=== PATIENT | female | born 1955 | race Two or more races ===

== ENCOUNTER 2021-04-17 16:10 | Emergency (ER) | payer MEDICAID ==
[~2021-04-17] VITALS: Ht 165.1 cm; Wt 81.6 kg
[2021-04-17 16:54] LABS: Basophils # (auto) 0 10 ^3/uL (0-0.2); Basophils % (auto) 0.4 % (0.0-2.0); Eosinophils # (auto) 0.1 10 ^3/uL (0-0.8); Eosinophils % (auto) 1.3 % (0.0-7.0); Hematocrit 42.7 % (36.0-46.0); Hemoglobin 14.7 g/dL (12.2-16.2); Lymphocytes # (auto) 1.3 10 ^3/uL (0.4-5.4); Lymphocytes % (auto) 13.7 % (10.0-50.0); Mean Corpuscular Hemoglobin 31.5 pg (28.0-32.0); Mean Corpuscular Hgb Conc. 34.4 g/dL (32.0-36.0); Mean Corpuscular Volume 91.5 fL (80.0-100.0); Monocytes # (auto) 0.5 10 ^3/uL (0-1.3); Monocytes % (auto) 5.3 % (0.0-12.0); Neutrophils # (auto) 7.5 10 ^3/uL (1.6-8.6); Neutrophils % (auto) 79.3 % (37.0-80.0); Red Blood Cells 4.67 10^6/uL (4.0-5.20); White Blood Cell 9.5 10^3/uL (4.4-10.8)
[2021-04-17 17:14] LABS: Albumin 4.3 g/dL (3.4-5.0); Calcium 8.8 mg/dL (8.5-10.1); Magnesium 2.1 mg/dL (1.6-2.6); Potassium 3.6 mmol/L (3.5-5.1)
[2021-04-17 17:19] LABS: Bilirubin, Total 0.5 mg/dL (0.2-1.0); Total Protein 7.8 g/dL (6.4-8.2)
[2021-04-17 17:38] LABS: Urine Bacteria FEW /hpf (None Seen); Urine Blood 1+ /uL (Negative); Urine Mucus FEW (None Seen); Urine WBC 11 /hpf (0 - 5)
[2021-04-18 03:55] VITALS: BP 154/81
== END 2021-04-18 05:00 | disposition home or self-care (01) ==
LOC: ER 16:10
DX: K80.20 Calculus of gallbladder without cholecystitis without obstruction (principal); J45.909 Unspecified asthma, uncomplicated; K21.9 Gastro-esophageal reflux disease without esophagitis; E11.9 Type 2 diabetes mellitus without complications
CPT/HCPCS: 36415; 74176; 80053; 81001; 82150; 83690; 83735; 85025; 93005

== ENCOUNTER 2024-08-20 18:38 | Inpatient (IN) | payer OTHER, MEDICAID ==
[~2024-08-20] VITALS: Ht 162.6 cm; Wt 68.8 kg
[2024-08-20 20:13] VITALS: BP 124/62; PULSE 91; PULSE 92; RESP 18; TEMP 100.9; O2SAT 92; O2SAT 93
[2024-08-20 20:20] VITALS: PULSE 75; RESP 18; O2SAT 95
[2024-08-20] MEDS ORDERED: MORPHINE SULFATE INJ 2 MG/ml SYRG IV PRN (22:30)
[2024-08-20] MEDS ORDERED: NITROGLYCERIN 0.4 MG SL TAB SL PRN (22:30)
--- NOTE | 2024-08-20 22:52 | DVHHP2 ---
Patient Family History: Patient reports no known family medical history. Allergies: Coded Allergies: Acetaminophen (Verified Allergy, Unknown, 10/29/15) Home Meds No Active Prescriptions or Reported Meds Current Medications Current Medications Medications (Trade) Dose Ordered Sig/Quynh Route PRN Reason Start Time Stop Time Status Last Admin Nitroglycerin (Ntrostat Sublingual) 0.4 mg Q5MINP PRN SL FOR CHEST PAIN 08/20/24 22:30 Morphine Sulfate 2 mg Q30M PRN IV FOR CHEST PAIN 08/20/24 22:30 Ceftriaxone Sodium 50 ml @ 100 mls/hr Q12HR IV 08/21/24 08:00 UNV Acetaminophen (Tylenol Tablet) 650 mg Q6HP PRN PO MILD PAIN (1-3 PAIN SCALE) 08/20/24 22:30 UNV Ketorolac Tromethamine (Toradol Injection) 15 mg Q6HPRN PRN IV Nod PAIN (4-6 PAIN SCALE) 08/20/24 22:30 08/25/24 22:29 UNV Pantoprazole Sodium (Protonix) 40 mg BID IV 08/21/24 10:00 UNV Ascorbic Acid (Vitamin C Tablet) 500 mg BID PO 08/21/24 10:00 UNV Valsartan (Diovan) 160 mg DAILY PO 08/21/24 10:00 UNV Insulin Human Lispro (HumaLOG) AC SC 08/21/24 07:00 UNV Insulin Human Lispro (HumaLOG) HS SC 08/21/24 22:00 UNV Sodium Chloride 1,000 ml @ 75 mls/hr [id number] IV 08/20/24 22:30 UNV Carbamazepine (TEGretol TABLET) 200 mg QID PO 08/21/24 06:00 UNV Vital Signs Vital Signs Date Time Temp Pulse Resp B/P (MAP) Pulse Ox O2 Delivery O2 Flow Rate FiO2 08/20/24 20:13 100.9 91 18 124/62 (82) 93 100.9 Results Labs Test 08/20/24 21:56 Range/Units Primary Diagnosis Acute asthmatic bronchitis Moderately severe hypovolemia Admitting Diagnosis: Acute asthmatic bronchitis Moderately severe hypovolemia Uncontrolled NIDDM Fairly well-controlled hypertension Recurrent UTI 2' Diagnosis/Comorbidities For LORRIE MAKI MD August 20, 2024 22:52
[2024-08-20 22:54] LABS: Basophils # (auto) 0 10 ^3/uL (0-0.2); Basophils % (auto) 0.3 % (0.0-2.0); Eosinophils # (auto) 0 10 ^3/uL (0-0.8); Lymphocytes # (auto) 1.5 10 ^3/uL (0.4-5.4); Lymphocytes % (auto) 13.7 % (10.0-50.0); Mean Corpuscular Hemoglobin 31.6 pg (28.0-32.0); Mean Corpuscular Hgb Conc. 35.1 g/dL (32.0-36.0); Mean Corpuscular Volume 90.2 fL (80.0-100.0); Monocytes # (auto) 1.3 10 ^3/uL (0-1.3); Monocytes % (auto) 11.3 % (0.0-12.0); Neutrophils # (auto) 8.5 10 ^3/uL (1.6-8.6); Neutrophils % (auto) 74.7 % (37.0-80.0); Platelet Count (auto) 192 10^3/uL (140-450); Red Cell Distribution Width 12.9 % (11.8-14.3); White Blood Cell 11.3 10^3/uL (4.4-10.8)
[2024-08-20 23:07] LABS: Alanine Aminotransferase 33 U/L (7-40); Alkaline Phosphatase 51 U/L (46-116); Anion Gap 11 (5-15); Aspartate Aminotransferase 22 U/L (13-40); BUN/Creatinine Ratio 13.3 (10.0-20.0); Blood Urea Nitrogen 10 mg/dL (9-23); Calcium 9.4 mg/dL (8.7-10.4); Carbon Dioxide 22 mmol/L (20-31); Chloride 102 mmol/L (98-107); Total Protein 7.2 g/dL (5.7-8.2); Triglycerides 113 mg/dL (< 150)
[2024-08-20 23:08] LABS: Albumin 4.5 g/dL (3.2-4.8); Bilirubin, Total 0.7 mg/dL (0.2-1.0); Cholesterol 163 mg/dL (< 200); Glucose 144 mg/dL (74-106); HDL Cholesterol 30 mg/dL (40-59); LDL Cholesterol 114 mg/dL (< 100); Phosphorus 3.2 mg/dL (2.4-5.1); Sodium 135 mmol/L (136-145)
[2024-08-20] MEDS: KETOROLAC TROMETH 30 MG/ML 1ML VIAL IV ONE (23:43)
[2024-08-20] MEDS: SODIUM CHLORIDE 0.9% 1,000 ML IV SCH (23:43)
[2024-08-20] MEDS: cefTRIAXone 2GM/50ML D5W 50 ML IV ONE (23:43)
[2024-08-20 23:52] LABS: Folate (Folic Acid) 21.74 ng/mL (>5.38)
[2024-08-21] VITALS (8 sets, daily range): BP systolic 98–146; BP diastolic 58–66; PULSE 73–99; RESP 17–20; TEMP 97.8–102.7; O2SAT 91–100
[2024-08-21] MEDS: carBAMazepine 200 MG TAB PO SCH (06:04)
[2024-08-21] MEDS: INSULIN LISPRO (HUMAN) 100 UNITS/ML ML SC SCH ×2 (06:08→22:00)
[2024-08-21 06:18] LABS: Basophils # (auto) 0 10 ^3/uL (0-0.2); Basophils % (auto) 0.3 % (0.0-2.0); Eosinophils # (auto) 0 10 ^3/uL (0-0.8); Hematocrit 37.3 % (36.0-46.0); Lymphocytes # (auto) 2.1 10 ^3/uL (0.4-5.4); Lymphocytes % (auto) 18.3 % (10.0-50.0); Mean Corpuscular Hemoglobin 31.8 pg (28.0-32.0); Monocytes # (auto) 1.5 10 ^3/uL (0-1.3); Monocytes % (auto) 13.1 % (0.0-12.0); Neutrophils # (auto) 7.9 10 ^3/uL (1.6-8.6); Neutrophils % (auto) 68.3 % (37.0-80.0); Platelet Count (auto) 190 10^3/uL (140-450); Red Cell Distribution Width 13.2 % (11.8-14.3); White Blood Cell 11.6 10^3/uL (4.4-10.8)
[2024-08-21 06:30] LABS: Alanine Aminotransferase 32 U/L (7-40); Albumin 4.5 g/dL (3.2-4.8); Alkaline Phosphatase 49 U/L (46-116); Anion Gap 9 (5-15); Aspartate Aminotransferase 21 U/L (13-40); BUN/Creatinine Ratio 12.1 (10.0-20.0); Bilirubin, Total 0.5 mg/dL (0.2-1.0); Blood Urea Nitrogen 11 mg/dL (9-23); Calcium 8.9 mg/dL (8.7-10.4); Carbon Dioxide 25 mmol/L (20-31); Chloride 102 mmol/L (98-107); Magnesium 2.2 mg/dL (1.6-2.6); Sodium 136 mmol/L (136-145); Total Protein 7.2 g/dL (5.7-8.2)
[2024-08-21 06:35] LABS: Glucose 122 mg/dL (74-106); Potassium 3.1 mmol/L (3.5-5.1)
--- NOTE | 2024-08-21 06:55 | DVH ---
EXAM: XR Chest, 1 View CLINICAL INDICATION: pnm TECHNIQUE: Frontal view of the chest. COMPARISON: None FINDINGS: LUNGS AND PLEURAL SPACES: Unremarkable. No consolidation. No pneumothorax. HEART: Cardiomegaly without overt failure. MEDIASTINUM: Unremarkable. Normal mediastinal contour. BONES/JOINTS: Unremarkable. No acute fracture. OTHER FINDINGS: . IMPRESSION: Cardiomegaly without overt failure.
[2024-08-21] MEDS ORDERED: INSULIN LISPRO (HUMAN) 100 UNITS/ML ML SC SCH ×2 (07:00→22:00)
[2024-08-21] MEDS: PANTOPRAZOLE 40 MG/10 ML VIAL INJ IV SCH (08:03)
[2024-08-21] MEDS: cefTRIAXone 1GM/50ML D5W 50 ML IV SCH (08:03)
[2024-08-21] MEDS: VALSARTAN 80 MG TAB PO SCH (08:04)
[2024-08-21] MEDS: ASCORBIC ACID 500 MG TAB PO SCH (08:04)
[2024-08-21] MEDS: KETOROLAC TROMETH 30 MG/ML 1ML VIAL IV PRN (08:10)
[2024-08-21 11:16] LABS: Hepatitis B Surface Antigen Negative (Negative); Hepatitis C Antibody Negative (Negative)
[2024-08-21] MEDS: SODIUM CHLORIDE 0.9% 1,000 ML IV SCH (16:08)
[2024-08-21 16:47] LABS: Basophils # (auto) 0 10 ^3/uL (0-0.2); Basophils % (auto) 0.3 % (0.0-2.0); Eosinophils # (auto) 0 10 ^3/uL (0-0.8); Hematocrit 37.5 % (36.0-46.0); Hemoglobin 13.2 g/dL (12.2-16.2); Lymphocytes # (auto) 2.2 10 ^3/uL (0.4-5.4); Lymphocytes % (auto) 18.4 % (10.0-50.0); Mean Corpuscular Hemoglobin 31.8 pg (28.0-32.0); Mean Corpuscular Hgb Conc. 35.2 g/dL (32.0-36.0); Mean Corpuscular Volume 90.6 fL (80.0-100.0); Monocytes # (auto) 1.6 10 ^3/uL (0-1.3); Neutrophils # (auto) 8.3 10 ^3/uL (1.6-8.6); Neutrophils % (auto) 68.3 % (37.0-80.0); Platelet Count (auto) 194 10^3/uL (140-450); Red Blood Cells 4.14 10^6/uL (4.0-5.20); White Blood Cell 12.2 10^3/uL (4.4-10.8)
[2024-08-21] MEDS: KETOROLAC TROMETH 30 MG/ML 1ML VIAL IV ONE (16:53)
[2024-08-21] MEDS: POTASSIUM CHL 20 Meq TABLET PO SCH (16:54)
[2024-08-21] MEDS: ACETAMINOPHEN 325 MG TAB PO PRN (16:59)
--- NOTE | 2024-08-21 21:43 | DVHPN2 ---
Progress Note - Dictate Date Seen: August 21, 2024 Subjective Patient remains clinically ill from hyperpyrexia and chest congestion Her T-max runs at 102.5� F Patient received blood cultures which are unremarkable for bacterial growth for past 24 hours She is continued on IV antibiotics namely Rocephin Acute asthmatic bronchitis Moderately severe hypovolemia Admitting Diagnosis: Acute asthmatic bronchitis Moderately severe hypovolemia Uncontrolled NIDDM Fairly well-controlled hypertension Recurrent UTI vital signs Vital Sign Date Time Temp Pulse Resp B/P (MAP) Pulse Ox O2 Delivery O2 Flow Rate FiO2 08/21/24 16:59 102.4 08/21/24 16:27 99 18 130/66 (87) 95 08/21/24 07:37 Room Air* 0 21 Total Intake and Output 08/20/24 08/20/24 08/21/24 15:00 23:00 07:00 Intake Total 0 ml Balance 0 ml medications Current Medications Medications Dose Ordered Sig/Quynh Route Start Time Stop Time Status Last Admin Dose Admin Nitroglycerin 0.4 mg Q5MINP PRN SL 08/20/24 22:30 Morphine Sulfate 2 mg Q30M PRN IV 08/20/24 22:30 Ceftriaxone Sodium 50 ml @ 100 mls/hr Q12HR IV 08/21/24 08:00 08/21/24 21:15 100 MLS/HR Acetaminophen 650 mg Q6HP PRN PO 08/20/24 22:30 08/21/24 16:59 650 MG Ketorolac Tromethamine 15 mg Q6HPRN PRN IV 08/20/24 22:30 08/25/24 22:29 08/21/24 08:10 15 MG Pantoprazole Sodium 40 mg BID IV 08/21/24 10:00 08/21/24 21:16 40 MG Ascorbic Acid 500 mg BID PO 08/21/24 10:00 08/21/24 21:16 500 MG Valsartan 160 mg DAILY PO 08/21/24 10:00 08/21/24 08:04 160 MG Carbamazepine 200 mg QID PO 08/21/24 06:00 08/21/24 21:16 200 MG Insulin Human Lispro AC SC 08/21/24 07:00 Insulin Human Lispro HS SC 08/21/24 22:00 Potassium Chloride 20 meq BID PO 08/21/24 16:00 5/8/25 23:59 08/21/24 21:16 20 MEQ Sodium Chloride 1,000 ml @ 50 mls/hr Q20H IV 08/21/24 16:00 08/21/24 16:08 50 MLS/HR objective Physical exam General appearance: Well-developed, well-nourished middle-aged female appears generally weak Awake alert oriented x3 , Appears in stated age group without respiratory distress Head: Normocephalic, non-traumatic Eyes: EOM-full, ESTRELLA, sclera nonicteric, conjunctive-pink, Eyeballs sunken +2, fundoscopic grade 1 AV changes ENT: ENT-No congestion, NSL bilateral symmetrical, oral mucosa dry Neck: Supple, carotid upstroke +2, trachea R off midline, loss of adipose tissue No goiter/lymph node enlargement JVD-3 cm, C spine- Full ROM Chest: Bilateral symmetrical expansions, No costochondral tenderness Breasts: deferred Lungs: clear breath sounds all over anterior and posterior lung harmon Reduced at L base> R base CVS: PMI-1.5 cm medial to L MCL in fifth ICS , S1-S2 NSR no S3 GI: Abdomen soft, obese, bowel sounds normoactive No focal/rebound tenderness, no organomegaly, no mass or hernia : No CVA tenderness, no bladder mass palpable, genitalia-NE SKIN: Turgor poor, color pale +1, no rash, no icterus, open wound proximal to L knee EXTs: No edema, color pale +1, no rash, no ecchymosis DP +1, capillary refill <2 seconds JOINTS: reduced from osteoarthritis of bilateral hip and knee joints BACK: No apparent lumbosacral spinal muscle tenderness, LYMPH NODES: No cervical, axillary or inguinal lymph nodes Neuro: Awake alert oriented �3, coherent, all cognitives- intact, cranial nerves 2-12 intact Motor- No pronator drift, no focal motor deficit, Sensory- changes of peripheral neuropathy DTR +2, gait wide, unsteady PSYCH: Affect mildly depressed-denies suicidal ideation laboratory and microbiology Laboratory Tests 08/21/24 16:21 08/21/24 04:34 Test 08/21/24 04:34 Range/Units Serum Glucose 122 H 74-106 mg/dL Problem List Acute asthmatic bronchitis Moderately severe hypovolemia Admitting Diagnosis: Acute asthmatic bronchitis Moderately severe hypovolemia Uncontrolled NIDDM Fairly well-controlled hypertension Recurrent UTI Assessment/Plan 1. BC 2. IV rocephin IV fluids + KCL check CMP in am 2D Echo LORRIE MAKI MD August 21, 2024 21:43
[2024-08-22] VITALS (9 sets, daily range): BP systolic 99–144; BP diastolic 54–84; PULSE 69–86; RESP 15–18; TEMP 97.4–100.4; O2SAT 96–100
[2024-08-22 11:27] LABS: Urine Bacteria None Seen /hpf (None Seen)
[2024-08-22 11:36] LABS: Urine Blood 2+ /uL (Negative); Urine Clarity Clear (Clear); Urine Color Light-Yellow (Yellow); Urine Mucus FEW (None Seen); Urine Protein, UAD Negative (Negative); Urine Specific Gravity 1.017 (1.001-1.035); Urine Squamous Epithelial Cell None Seen /hpf (<5); Urine Urobilinogen Normal (Negative); Urine WBC 4 /HPF (0-5); Urine pH 5.5 (5.0-9.0)
--- NOTE | 2024-08-22 23:42 | DVHPN2 ---
Progress Note - Dictate Date Seen: August 22, 2024 Subjective Patient was noted to improvement in febrile illness Her T-max runs at 100.5� F Patient feels relatively better Acute asthmatic bronchitis Moderately severe hypovolemia Admitting Diagnosis: Acute asthmatic bronchitis Moderately severe hypovolemia Uncontrolled NIDDM Fairly well-controlled hypertension Recurrent UTI vital signs Vital Sign Date Time Temp Pulse Resp B/P (MAP) Pulse Ox O2 Delivery O2 Flow Rate FiO2 08/22/24 21:00 98.0 70 15 120/73 (89) 97 98.0 08/22/24 08:00 Room Air* 0 21 Total Intake and Output 08/21/24 08/21/24 08/22/24 15:00 23:00 07:00 Intake Total 150 ml 175 ml Output Total 500 ml Balance -350 ml 175 ml medications Current Medications Medications Dose Ordered Sig/Quynh Route Start Time Stop Time Status Last Admin Dose Admin Nitroglycerin 0.4 mg Q5MINP PRN SL 08/20/24 22:30 Morphine Sulfate 2 mg Q30M PRN IV 08/20/24 22:30 Ceftriaxone Sodium 50 ml @ 100 mls/hr Q12HR IV 08/21/24 08:00 08/22/24 20:38 100 MLS/HR Acetaminophen 650 mg Q6HP PRN PO 08/20/24 22:30 08/22/24 13:20 650 MG Ketorolac Tromethamine 15 mg Q6HPRN PRN IV 08/20/24 22:30 08/25/24 22:29 08/21/24 08:10 15 MG Pantoprazole Sodium 40 mg BID IV 08/21/24 10:00 08/22/24 20:35 40 MG Ascorbic Acid 500 mg BID PO 08/21/24 10:00 08/22/24 20:37 500 MG Valsartan 160 mg DAILY PO 08/21/24 10:00 08/22/24 09:12 160 MG Carbamazepine 200 mg QID PO 08/21/24 06:00 08/22/24 20:37 200 MG Insulin Human Lispro AC SC 08/21/24 07:00 Insulin Human Lispro HS SC 08/21/24 22:00 Potassium Chloride 20 meq BID PO 08/21/24 16:00 08/22/24 23:59 08/22/24 20:37 20 MEQ Sodium Chloride 1,000 ml @ 50 mls/hr Q20H IV 08/21/24 16:00 08/22/24 09:16 50 MLS/HR objective General appearance: Well-developed, well-nourished middle-aged female appears generally weak Awake alert oriented x3 , Appears in stated age group without respiratory distress Head: Normocephalic, non-traumatic Eyes: EOM-full, ESTRELLA, sclera non-icteric, conjunctive-pink, Eyeballs sunken +1, fundoscopic grade 1 AV changes ENT: ENT-No congestion, NSL bilateral symmetrical, oral mucosa dry Neck: Supple, carotid upstroke +2, trachea R off midline, loss of adipose tissue No goiter/lymph node enlargement JVD-3 cm, C spine- Full ROM Chest: Bilateral symmetrical expansions, No costochondral tenderness Breasts: deferred Lungs: clear breath sounds all over anterior and posterior lung harmon Reduced at L base> R base CVS: PMI-1.5 cm medial to L MCL in fifth ICS , S1-S2 NSR no S3 GI: Abdomen soft, obese, bowel sounds normoactive No focal/rebound tenderness, no organomegaly, no mass or hernia : No CVA tenderness, no bladder mass palpable, genitalia-NE SKIN: Turgor improving, color pale +1, no rash, no icterus, open wound proximal to L knee EXTs: No edema, color pale +1, no rash, no ecchymosis DP +2, capillary refill <2 seconds JOINTS: reduced from osteoarthritis of bilateral hip and knee joints BACK: No apparent lumbosacral spinal muscle tenderness, LYMPH NODES: No cervical, axillary or inguinal lymph nodes Neuro: Awake alert oriented �3, coherent, all cognitives- intact, cranial nerves 2-12 intact Motor- No pronator drift, no focal motor deficit, Sensory- changes of peripheral neuropathy DTR +2, gait wide, unsteady PSYCH: Affect mildly depressed-denies suicidal ideation laboratory and microbiology Laboratory Tests 08/21/24 16:21 08/21/24 04:34 Test 08/21/24 04:34 Range/Units Serum Glucose 122 H 74-106 mg/dL Problem List Acute asthmatic bronchitis Moderately severe hypovolemia Admitting Diagnosis: Acute asthmatic bronchitis Moderately severe hypovolemia Uncontrolled NIDDM Fairly well-controlled hypertension Recurrent UTI Assessment/Plan 1. Reviewed results of BC 2. Continued patient on IV rocephin Await results of 2D echo Change IV fluid to half-normal saline Repeat chest x-ray check CMP in am LORRIE MAKI MD August 22, 2024 23:42
[2024-08-23] VITALS (9 sets, daily range): BP systolic 114–130; BP diastolic 63–76; PULSE 65–78; RESP 15–20; TEMP 98–98.7; O2SAT 92–97
[2024-08-23 06:52] LABS: Albumin 3.9 g/dL (3.2-4.8); Alkaline Phosphatase 52 U/L (46-116); Anion Gap 10 (5-15); Aspartate Aminotransferase 39 U/L (13-40); BUN/Creatinine Ratio 13.1 (10.0-20.0); Calcium 9.1 mg/dL (8.7-10.4); Carbon Dioxide 23 mmol/L (20-31); Chloride 107 mmol/L (98-107); Sodium 140 mmol/L (136-145); Total Protein 6.6 g/dL (5.7-8.2)
[2024-08-23 06:53] LABS: Bilirubin, Total 0.3 mg/dL (0.2-1.0)
[2024-08-23 06:54] LABS: Basophils # (auto) 0 10 ^3/uL (0-0.2); Basophils % (auto) 0.5 % (0.0-2.0); Eosinophils # (auto) 0.1 10 ^3/uL (0-0.8); Eosinophils % (auto) 0.9 % (0.0-7.0); Hematocrit 33.1 % (36.0-46.0); Hemoglobin 11.7 g/dL (12.2-16.2); Lymphocytes # (auto) 1.7 10 ^3/uL (0.4-5.4); Lymphocytes % (auto) 29.9 % (10.0-50.0); Mean Corpuscular Hemoglobin 31.8 pg (28.0-32.0); Mean Corpuscular Hgb Conc. 35.4 g/dL (32.0-36.0); Mean Corpuscular Volume 89.8 fL (80.0-100.0); Monocytes # (auto) 0.5 10 ^3/uL (0-1.3); Monocytes % (auto) 9.2 % (0.0-12.0); Neutrophils # (auto) 3.3 10 ^3/uL (1.6-8.6); Neutrophils % (auto) 59.5 % (37.0-80.0); Nucleated Red Blood Cells % 0.1 %; Platelet Count (auto) 185 10^3/uL (140-450); Red Blood Cells 3.69 10^6/uL (4.0-5.20); White Blood Cell 5.6 10^3/uL (4.4-10.8)
[2024-08-23 06:55] LABS: Alanine Aminotransferase 59 U/L (7-40); Blood Urea Nitrogen 8 mg/dL (9-23); Glucose 116 mg/dL (74-106); Potassium 3.2 mmol/L (3.5-5.1)
--- NOTE | 2024-08-23 09:58 | DVH ---
XY CHEST TWO VIEWS ROUTINE CLINICAL HISTORY: Pneumonia COMPARISON: None TECHNIQUE: Frontal and lateral view of the chest was obtained FINDINGS: Lines and Tubes: None Lungs: No focal consolidation. Pleura: No effusion. No pneumothorax. Cardiomediastinal contours: Unremarkable Bones: No acute osseous abnormality. IMPRESSION: No acute cardiopulmonary disease.
--- NOTE | 2024-08-23 23:54 | DVHPN2 ---
Progress Note - Dictate Date Seen: August 23, 2024 Subjective Patient remains clinically improving as she recovered from hyperpyrexia and chest congestion Her T-max down to 98.5� F Patient received blood cultures which are unremarkable for bacterial growth for past 24 hours She is continued on IV antibiotics namely Rocephin Acute asthmatic bronchitis Moderately severe hypovolemia Admitting Diagnosis: Acute asthmatic bronchitis Moderately severe hypovolemia Uncontrolled NIDDM Fairly well-controlled hypertension Recurrent UTI vital signs Vital Sign Date Time Temp Pulse Resp B/P (MAP) Pulse Ox O2 Delivery O2 Flow Rate FiO2 08/23/24 21:00 98.3 70 17 116/64 (81) 97 98.3 08/23/24 20:00 Room Air* 0 21 Total Intake and Output 08/22/24 08/22/24 08/23/24 15:00 23:00 07:00 Intake Total 1050 ml 800 ml 400 ml Balance 1050 ml 800 ml 400 ml medications Current Medications Medications Dose Ordered Sig/Quynh Route Start Time Stop Time Status Last Admin Dose Admin Nitroglycerin 0.4 mg Q5MINP PRN SL 08/20/24 22:30 Morphine Sulfate 2 mg Q30M PRN IV 08/20/24 22:30 Ceftriaxone Sodium 50 ml @ 100 mls/hr Q12HR IV 08/21/24 08:00 08/23/24 21:53 100 MLS/HR Acetaminophen 650 mg Q6HP PRN PO 08/20/24 22:30 08/22/24 13:20 650 MG Ketorolac Tromethamine 15 mg Q6HPRN PRN IV 08/20/24 22:30 08/25/24 22:29 08/21/24 08:10 15 MG Pantoprazole Sodium 40 mg BID IV 08/21/24 10:00 08/23/24 21:53 40 MG Ascorbic Acid 500 mg BID PO 08/21/24 10:00 08/23/24 21:53 500 MG Valsartan 160 mg DAILY PO 08/21/24 10:00 08/23/24 08:29 160 MG Carbamazepine 200 mg QID PO 08/21/24 06:00 08/23/24 05:48 200 MG Insulin Human Lispro AC SC 08/21/24 07:00 Insulin Human Lispro HS SC 08/21/24 22:00 Sodium Chloride 1,000 ml @ 50 mls/hr Q20H IV 08/21/24 16:00 08/23/24 05:47 50 MLS/HR objective General appearance: Well-developed, well-nourished middle-aged female appears generally weak Awake alert oriented x3 , Appears in stated age group without respiratory distress Head: Normocephalic, non-traumatic Eyes: EOM-full, ESTRELLA, sclera non-icteric, conjunctive-pink, Eyeballs sunken 0, fundoscopic grade 1 AV changes ENT: ENT-No congestion, NSL bilateral symmetrical, oral mucosa wet Neck: Supple, carotid upstroke +2, trachea R off midline, loss of adipose tissue No goiter/lymph node enlargement JVD-3 cm, C spine- Full ROM Chest: Bilateral symmetrical expansions, No costochondral tenderness Breasts: deferred Lungs: clear breath sounds all over anterior and posterior lung harmon Reduced at L base> R base CVS: PMI-1.5 cm medial to L MCL in fifth ICS , S1-S2 NSR no S3 GI: Abdomen soft, obese, bowel sounds normoactive No focal/rebound tenderness, no organomegaly, no mass or hernia : No CVA tenderness, no bladder mass palpable, genitalia-NE SKIN: Turgor normal, color pale +1, no rash, no icterus, open wound proximal to L knee EXTs: No edema, color pale +1, no rash, no ecchymosis DP +2, capillary refill <2 seconds JOINTS: reduced from osteoarthritis of bilateral hip and knee joints BACK: No apparent lumbosacral spinal muscle tenderness, LYMPH NODES: No cervical, axillary or inguinal lymph nodes Neuro: Awake alert oriented �3, coherent, all cognitives- intact, cranial nerves 2-12 intact Motor- No pronator drift, no focal motor deficit, Sensory- changes of peripheral neuropathy DTR +2, gait steady PSYCH: Affect mildly depressed-denies suicidal ideation laboratory and microbiology Laboratory Tests 08/23/24 05:23 Test 08/23/24 05:23 Range/Units Serum Glucose 116 H 74-106 mg/dL Problem List Acute asthmatic bronchitis Moderately severe hypovolemia Admitting Diagnosis: Acute asthmatic bronchitis Moderately severe hypovolemia Uncontrolled NIDDM Fairly well-controlled hypertension Recurrent UTI Assessment/Plan 1. Reviewed results of BC 2. Continued patient on IV rocephin Await results of 2D echo Change IV fluid to half-normal saline Repeat chest x-ray check CMP in am LORRIE MAKI MD August 23, 2024 23:54
[2024-08-24] VITALS (7 sets, daily range): BP systolic 112–143; BP diastolic 63–75; PULSE 64–80; RESP 16–18; TEMP 97.5–98.4; O2SAT 95–98
[2024-08-24] MEDS ORDERED: MORPHINE SULFATE INJ 2 MG/ml SYRG IV PRN
[2024-08-24 06:21] LABS: Basophils # (auto) 0 10 ^3/uL (0-0.2); Basophils % (auto) 0.5 % (0.0-2.0); Eosinophils # (auto) 0.1 10 ^3/uL (0-0.8); Hematocrit 34.3 % (36.0-46.0); Lymphocytes # (auto) 1.9 10 ^3/uL (0.4-5.4); Lymphocytes % (auto) 37.6 % (10.0-50.0); Mean Corpuscular Hemoglobin 31.6 pg (28.0-32.0); Mean Corpuscular Hgb Conc. 34.8 g/dL (32.0-36.0); Mean Corpuscular Volume 90.8 fL (80.0-100.0); Monocytes # (auto) 0.4 10 ^3/uL (0-1.3); Monocytes % (auto) 8.4 % (0.0-12.0); Neutrophils # (auto) 2.7 10 ^3/uL (1.6-8.6); Neutrophils % (auto) 52.5 % (37.0-80.0); Platelet Count (auto) 235 10^3/uL (140-450); Red Blood Cells 3.78 10^6/uL (4.0-5.20); Red Cell Distribution Width 13.3 % (11.8-14.3); White Blood Cell 5.1 10^3/uL (4.4-10.8)
[2024-08-24 06:40] LABS: Albumin 3.9 g/dL (3.2-4.8); Alkaline Phosphatase 52 U/L (46-116); Anion Gap 12 (5-15); Aspartate Aminotransferase 28 U/L (13-40); Blood Urea Nitrogen 11 mg/dL (9-23); Calcium 9.2 mg/dL (8.7-10.4); Carbon Dioxide 23 mmol/L (20-31); Chloride 107 mmol/L (98-107); Sodium 142 mmol/L (136-145); Total Protein 6.6 g/dL (5.7-8.2)
[2024-08-24 06:44] LABS: Alanine Aminotransferase 54 U/L (7-40); Bilirubin, Total 0.2 mg/dL (0.2-1.0); Glucose 110 mg/dL (74-106); Potassium 2.8 mmol/L (3.5-5.1)
--- NOTE | 2024-08-24 12:15 | ECG ---
[facility] Test Date: 2024-08-23 Test Time: 23:00:14 Pat Name: ALBERT CHAVEZ Department: Room: [facility]T A Gender: F [employer]: pao : 1955 Requested By: LORRIE MAKI Order Number: [id number] Reading MD: Abhijit Mcginnis Measurements Intervals [place] Rate: 67 P: -10 [place]: 177 QRS: -16 QRSD: 90 T: 34 QT: 424 QTc: 448 Interpretive Statements Sinus rhythm Borderline left axis deviation Low voltage, precordial leads Baseline wander in lead(s) V2 Electronically Signed On 08-28-2024 11:56:52 PDT by Abhijit Mcginnis Please click the below link to view image of tracing.
--- NOTE | 2024-08-24 12:57 | DVHPN2 ---
Progress Note - Dictate Date Seen: August 24, 2024 Subjective Patient remains clinically improving as she recovered from hyperpyrexia and chest congestion Her T-max down to 98.5� F Patient received blood cultures which are unremarkable for bacterial growth for past 24 hours She is continued on IV antibiotics namely Rocephin Acute asthmatic bronchitis Moderately severe hypovolemia Admitting Diagnosis: Acute asthmatic bronchitis Moderately severe hypovolemia Uncontrolled NIDDM Fairly well-controlled hypertension Recurrent UTI vital signs Vital Sign Date Time Temp Pulse Resp B/P (MAP) Pulse Ox O2 Delivery O2 Flow Rate FiO2 08/24/24 10:41 127/75 08/24/24 09:00 97.5 75 18 97 97.5 08/24/24 08:00 Room Air* 0 21 Total Intake and Output 08/23/24 08/23/24 08/24/24 15:00 23:00 07:00 Intake Total 50 ml 1190 ml 500 ml Balance 50 ml 1190 ml 500 ml medications Current Medications Medications Dose Ordered Sig/Quynh Route Start Time Stop Time Status Last Admin Dose Admin Nitroglycerin 0.4 mg Q5MINP PRN SL 08/20/24 22:30 Ceftriaxone Sodium 50 ml @ 100 mls/hr Q12HR IV 08/21/24 08:00 08/24/24 10:42 100 MLS/HR Acetaminophen 650 mg Q6HP PRN PO 08/20/24 22:30 08/22/24 13:20 650 MG Ketorolac Tromethamine 15 mg Q6HPRN PRN IV 08/20/24 22:30 08/25/24 22:29 08/21/24 08:10 15 MG Pantoprazole Sodium 40 mg BID IV 08/21/24 10:00 08/24/24 10:46 40 MG Ascorbic Acid 500 mg BID PO 08/21/24 10:00 08/24/24 10:41 500 MG Valsartan 160 mg DAILY PO 08/21/24 10:00 08/24/24 10:41 160 MG Carbamazepine 200 mg QID PO 08/21/24 06:00 08/23/24 05:48 200 MG Insulin Human Lispro AC SC 08/21/24 07:00 Insulin Human Lispro HS SC 08/21/24 22:00 Morphine Sulfate 2 mg Q30M PRN IV 08/24/24 00:00 Potassium Chloride 40 meq/ Sodium Chloride 1,020 ml @ 40 mls/hr Q24H IV 08/24/24 13:00 UNV Potassium Chloride 20 meq TID PO 08/24/24 14:00 08/25/24 12:00 UNV objective General appearance: Well-developed, well-nourished middle-aged female appears generally weak Awake alert oriented x3 , Appears in stated age group without respiratory distress Head: Normocephalic, non-traumatic Eyes: EOM-full, ESTRELLA, sclera non-icteric, conjunctive-pink, Fundoscopic grade 1 AV changes ENT: ENT-No congestion, NSL bilateral symmetrical, oral mucosa wet Neck: Supple, carotid upstroke +2, trachea midline, loss of adipose tissue No goiter/lymph node enlargement JVD-3 cm, C spine- Full ROM Chest: Bilateral symmetrical expansions, No costochondral tenderness Breasts: deferred Lungs: clear breath sounds all over anterior and posterior lung harmon Reduced at L base> R base CVS: PMI-1.5 cm medial to L MCL in fifth ICS , S1-S2 NSR no S3 GI: Abdomen soft, obese, bowel sounds normoactive No focal/rebound tenderness, no organomegaly, no mass or hernia : No CVA tenderness, no bladder mass palpable, genitalia-NE SKIN: Turgor normal, color pink, no rash, no icterus, open wound proximal to L knee EXTs: No edema, color pink, no rash, no ecchymosis DP +2, capillary refill <2 seconds JOINTS: reduced from osteoarthritis of bilateral hip and knee joints BACK: No apparent lumbo-sacral spinal muscle tenderness, LYMPH NODES: No cervical, axillary or inguinal lymph nodes Neuro: Awake alert oriented �3, coherent, all cognitives- intact, cranial nerves 2-12 intact Motor- No pronator drift, no focal motor deficit, Sensory- changes of peripheral neuropathy DTR +2, gait steady PSYCH: Affect mildly depressed-denies suicidal ideation laboratory and microbiology Laboratory Tests 08/24/24 05:00 Test 08/24/24 05:00 Range/Units Serum Glucose 110 H 74-106 mg/dL Problem List Acute asthmatic bronchitis Moderately severe hypovolemia Admitting Diagnosis: Acute asthmatic bronchitis Moderately severe hypovolemia Uncontrolled NIDDM Fairly well-controlled hypertension Recurrent UTI Assessment/Plan 1. Reviewed results of BC 2. Continued patient on IV rocephin Await results of 2D echo Change IV fluid to half-normal saline Repeat chest x-ray check CMP in am Dietary Evaluation Review Comments: 1) Encourage optimal PO intake 2) Follow-up with pulmonology 3) Continue to monitor I&O, labs, and skin integrity Expected Outcomes/Goals: 1) appetite and labs to improve 2) follow-up in 3-5 days LORRIE MAKI MD August 24, 2024 12:57
[2024-08-24] MEDS: POTASSIUM CHL 20 Meq TABLET PO SCH (14:47)
[2024-08-24] MEDS: POTASSIUM CHLORIDE 40 MEQ in SOD CHL 0.45% 1,000 ML IV SCH (14:52)
[2024-08-25 01:00] VITALS: BP 114/63; PULSE 65; RESP 18; TEMP 97.8; O2SAT 98
[2024-08-25 05:00] VITALS: BP 101/51; PULSE 53; RESP 17; TEMP 97; O2SAT 98
[2024-08-25 05:55] LABS: Basophils # (auto) 0 10 ^3/uL (0-0.2); Basophils % (auto) 0.8 % (0.0-2.0); Eosinophils # (auto) 0.1 10 ^3/uL (0-0.8); Eosinophils % (auto) 1.8 % (0.0-7.0); Hematocrit 34.8 % (36.0-46.0); Lymphocytes # (auto) 1.9 10 ^3/uL (0.4-5.4); Lymphocytes % (auto) 39.4 % (10.0-50.0); Mean Corpuscular Hemoglobin 31.2 pg (28.0-32.0); Mean Corpuscular Hgb Conc. 34.5 g/dL (32.0-36.0); Mean Corpuscular Volume 90.4 fL (80.0-100.0); Monocytes # (auto) 0.4 10 ^3/uL (0-1.3); Monocytes % (auto) 8.7 % (0.0-12.0); Neutrophils # (auto) 2.4 10 ^3/uL (1.6-8.6); Neutrophils % (auto) 49.3 % (37.0-80.0); Nucleated Red Blood Cells % 0.1 %; Platelet Count (auto) 260 10^3/uL (140-450); Red Blood Cells 3.85 10^6/uL (4.0-5.20); Red Cell Distribution Width 13.6 % (11.8-14.3); White Blood Cell 4.8 10^3/uL (4.4-10.8)
[2024-08-25 06:05] LABS: Alanine Aminotransferase 52 U/L (7-40); Albumin 3.9 g/dL (3.2-4.8); Alkaline Phosphatase 49 U/L (46-116); Anion Gap 11 (5-15); Aspartate Aminotransferase 30 U/L (13-40); Blood Urea Nitrogen 13 mg/dL (9-23); Calcium 8.5 mg/dL (8.7-10.4); Carbon Dioxide 23 mmol/L (20-31); Chloride 108 mmol/L (98-107); Glucose 109 mg/dL (74-106); Potassium 3.6 mmol/L (3.5-5.1); Sodium 142 mmol/L (136-145); Total Protein 6.3 g/dL (5.7-8.2)
[2024-08-25 06:07] LABS: Bilirubin, Total 0.2 mg/dL (0.2-1.0)
[2024-08-25 08:00] VITALS: PULSE 63
[2024-08-25 09:00] VITALS: BP 128/67; PULSE 63; RESP 20; TEMP 97.8; O2SAT 98
[2024-08-25] MEDS: cefTRIAXone 1GM/50ML D5W 50 ML IV SCH (11:53)
[2024-08-25] MEDS ORDERED: ASCO500T11 PO (12:34)
[2024-08-25] MEDS ORDERED: VALS1TAB57 PO (12:34)
[2024-08-25] MEDS ORDERED: CARB200T4 PO (12:34)
[2024-08-25] MEDS ORDERED: CEFU500T43 PO (12:34)
--- NOTE | 2024-08-25 12:36 | DVHDS2 ---
Discharge Summary Date of Admission August 20, 2024 at 19:42 Labs/Diagnostic Data: Laboratory Results Test 08/25/24 12:12 08/25/24 05:15 08/24/24 05:00 08/22/24 11:00 POC Glucose 94 mg/dl (70-106) White Blood Count 4.8 10^3/uL (4.4-10.8) Red Blood Count 3.85 10^6/uL (4.0-5.20) Hemoglobin 12.0 g/dL (12.2-16.2) Hematocrit 34.8 % (36.0-46.0) Mean Corpuscular Volume 90.4 fL (80.0-100.0) Mean Corpuscular Hemoglobin 31.2 pg (28.0-32.0) Mean Corpuscular Hemoglobin Concent 34.5 g/dL (32.0-36.0) Red Cell Distribution Width 13.6 % (11.8-14.3) Platelet Count 260 10^3/uL (140-450) Mean Platelet Volume 8.8 fL (6.9-10.8) Neutrophils (%) (Auto) 49.3 % (37.0-80.0) Lymphocytes (%) (Auto) 39.4 % (10.0-50.0) Monocytes (%) (Auto) 8.7 % (0.0-12.0) Eosinophils (%) (Auto) 1.8 % (0.0-7.0) Basophils (%) (Auto) 0.8 % (0.0-2.0) Neutrophils # (Auto) 2.4 10 ^3/uL (1.6-8.6) Lymphocytes # (Auto) 1.9 10 ^3/uL (0.4-5.4) Monocytes # (Auto) 0.4 10 ^3/uL (0-1.3) Eosinophils # (Auto) 0.1 10 ^3/uL (0-0.8) Basophils # (Auto) 0 10 ^3/uL (0-0.2) Nucleated Red Blood Cells 0.1 % Sodium Level 142 mmol/L (136-145) Potassium Level 3.6 mmol/L (3.5-5.1) Chloride Level 108 mmol/L (98-107) Carbon Dioxide Level 23 mmol/L (20-31) Anion Gap 11 (5-15) Blood Urea Nitrogen 13 mg/dL (9-23) Creatinine 0.52 mg/dL (0.550-1.02) Glomerular Filtration Rate Calc 101 mL/min (>90) BUN/Creatinine Ratio 25.0 (10.0-20.0) Serum Glucose 109 mg/dL (74-106) Calcium Level 8.5 mg/dL (8.7-10.4) Total Bilirubin 0.2 mg/dL (0.2-1.0) Aspartate Amino Transferase (AST) 30 U/L (13-40) Alanine Aminotransferase (ALT) 52 U/L (7-40) Alkaline Phosphatase 49 U/L (46-116) Total Protein 6.3 g/dL (5.7-8.2) Albumin 3.9 g/dL (3.2-4.8) Magnesium Level 2.1 mg/dL (1.6-2.6) Urine Color Light-yellow (Yellow) Urine Clarity Clear (Clear) Urine pH 5.5 (5.0-9.0) Urine Specific [place] 1.017 (1.001-1.035) Urine Protein Negative (Negative) Urine Ketones 1+ (Negative) Urine Blood 2+ /uL (Negative) Urine Nitrite Negative (Negative) Urine Bilirubin Negative (Negative) Urine Urobilinogen Normal mg/dL (Negative) Urine Leukocyte Esterase Negative /uL (Negative) Urine RBC 18 /hpf (0 - 4) Urine Microscopic WBC 4 /HPF (0-5) Urine Squamous Epithelial Cells None seen /hpf (<5) Urine Bacteria None seen /hpf (None Seen) Urine Mucus Few (None Seen) Urine Glucose Normal mg/dL (Normal) Test 08/21/24 16:21 08/21/24 04:34 08/20/24 22:55 08/20/24 21:56 Lactic Acid Level 1.2 mmol/L (0.4-2.0) Hemoglobin A1c 5.7 % A1C (<5.7) Thyroid Stimulating Hormone (TSH) 0.41 uIU/mL (0.55-4.78) Vitamin B12 Level 243 pg/mL (211-911) Folic Acid 21.74 ng/mL (>5.38) Phosphorus Level 3.2 mg/dL (2.4-5.1) Triglycerides Level 113 mg/dL (< 150) Cholesterol Level 163 mg/dL (< 200) LDL Cholesterol 114 mg/dL (< 100) HDL Cholesterol 30 mg/dL (40-59) Hepatitis B Surface Antigen Negative (Negative) Hepatitis C Antibody Negative (Negative) Other Laboratory Tests 08/25/24 05:15 Discharge Statement: "Patient was advised to return to the ER or call 911 if any headaches, dizziness, shortness of breath, chest pain, abdominal pain, bleeding, fevers, or worsening of medical condition. Patient was counseled about treatment plan, medications, possible side effects, patient�verbalized understanding. All questions were answered to the best of my ability. This discharge took greater then 30 minutes in planning, reviewing documentation, counseling the patient, and discussing with other team members." ASSESSMENT ASSESSMENT Assessment LORRIE MAKI MD August 25, 2024 12:36
[2024-08-25 13:00] VITALS: BP_SYST 128; BP_SYST 145; BP_DIAS 63; BP_DIAS 66; PULSE 60; PULSE 82; RESP 20; TEMP 97.9; TEMP 98; O2SAT 100; O2SAT 91
[2024-08-25] MEDS ORDERED: FOLI-119 PO (13:01)
--- NOTE | 2024-08-25 13:02 | DVHDS2 ---
Discharge Summary Date of Admission August 20, 2024 at 19:42 Date of Discharge: August 25, 2024 Labs/Diagnostic Data: Laboratory Results Test 08/25/24 12:12 08/25/24 05:15 08/24/24 05:00 08/22/24 11:00 POC Glucose 94 mg/dl (70-106) White Blood Count 4.8 10^3/uL (4.4-10.8) Red Blood Count 3.85 10^6/uL (4.0-5.20) Hemoglobin 12.0 g/dL (12.2-16.2) Hematocrit 34.8 % (36.0-46.0) Mean Corpuscular Volume 90.4 fL (80.0-100.0) Mean Corpuscular Hemoglobin 31.2 pg (28.0-32.0) Mean Corpuscular Hemoglobin Concent 34.5 g/dL (32.0-36.0) Red Cell Distribution Width 13.6 % (11.8-14.3) Platelet Count 260 10^3/uL (140-450) Mean Platelet Volume 8.8 fL (6.9-10.8) Neutrophils (%) (Auto) 49.3 % (37.0-80.0) Lymphocytes (%) (Auto) 39.4 % (10.0-50.0) Monocytes (%) (Auto) 8.7 % (0.0-12.0) Eosinophils (%) (Auto) 1.8 % (0.0-7.0) Basophils (%) (Auto) 0.8 % (0.0-2.0) Neutrophils # (Auto) 2.4 10 ^3/uL (1.6-8.6) Lymphocytes # (Auto) 1.9 10 ^3/uL (0.4-5.4) Monocytes # (Auto) 0.4 10 ^3/uL (0-1.3) Eosinophils # (Auto) 0.1 10 ^3/uL (0-0.8) Basophils # (Auto) 0 10 ^3/uL (0-0.2) Nucleated Red Blood Cells 0.1 % Sodium Level 142 mmol/L (136-145) Potassium Level 3.6 mmol/L (3.5-5.1) Chloride Level 108 mmol/L (98-107) Carbon Dioxide Level 23 mmol/L (20-31) Anion Gap 11 (5-15) Blood Urea Nitrogen 13 mg/dL (9-23) Creatinine 0.52 mg/dL (0.550-1.02) Glomerular Filtration Rate Calc 101 mL/min (>90) BUN/Creatinine Ratio 25.0 (10.0-20.0) Serum Glucose 109 mg/dL (74-106) Calcium Level 8.5 mg/dL (8.7-10.4) Total Bilirubin 0.2 mg/dL (0.2-1.0) Aspartate Amino Transferase (AST) 30 U/L (13-40) Alanine Aminotransferase (ALT) 52 U/L (7-40) Alkaline Phosphatase 49 U/L (46-116) Total Protein 6.3 g/dL (5.7-8.2) Albumin 3.9 g/dL (3.2-4.8) Magnesium Level 2.1 mg/dL (1.6-2.6) Urine Color Light-yellow (Yellow) Urine Clarity Clear (Clear) Urine pH 5.5 (5.0-9.0) Urine Specific [place] 1.017 (1.001-1.035) Urine Protein Negative (Negative) Urine Ketones 1+ (Negative) Urine Blood 2+ /uL (Negative) Urine Nitrite Negative (Negative) Urine Bilirubin Negative (Negative) Urine Urobilinogen Normal mg/dL (Negative) Urine Leukocyte Esterase Negative /uL (Negative) Urine RBC 18 /hpf (0 - 4) Urine Microscopic WBC 4 /HPF (0-5) Urine Squamous Epithelial Cells None seen /hpf (<5) Urine Bacteria None seen /hpf (None Seen) Urine Mucus Few (None Seen) Urine Glucose Normal mg/dL (Normal) Test 08/21/24 16:21 08/21/24 04:34 08/20/24 22:55 08/20/24 21:56 Lactic Acid Level 1.2 mmol/L (0.4-2.0) Hemoglobin A1c 5.7 % A1C (<5.7) Thyroid Stimulating Hormone (TSH) 0.41 uIU/mL (0.55-4.78) Vitamin B12 Level 243 pg/mL (211-911) Folic Acid 21.74 ng/mL (>5.38) Phosphorus Level 3.2 mg/dL (2.4-5.1) Triglycerides Level 113 mg/dL (< 150) Cholesterol Level 163 mg/dL (< 200) LDL Cholesterol 114 mg/dL (< 100) HDL Cholesterol 30 mg/dL (40-59) Hepatitis B Surface Antigen Negative (Negative) Hepatitis C Antibody Negative (Negative) Other Laboratory Tests 08/25/24 05:15 Final Diagnosis/Problems List 1. LLB pneumonia 2. Hyperpyrexia 3. Well controlled Hypaertension 4. Trigeminal neuralgia Discharge Disposition: Home Discharge Instruct/Medications Diet: Consistent carbohydrate, Cardiac 2g Na,low cholest Diet comment: 1800 cory ADA low Na 2 g Activity: See Comment Activity comment: Mild to Moderate as tolerated Do not lift > 10 lbs Follow Up/Referral: DR Cely Davis in 1-5 days Medications: as Per D/s Med rec Discharge Statement: "Patient was advised to return to the ER or call 911 if any headaches, dizziness, shortness of breath, chest pain, abdominal pain, bleeding, fevers, or worsening of medical condition. Patient was counseled about treatment plan, medications, possible side effects, patient�verbalized understanding. All questions were answered to the best of my ability. This discharge took greater then 30 minutes in planning, reviewing documentation, counseling the patient, and discussing with other team members." ASSESSMENT ASSESSMENT Assessment 1. LLB pneumonia 2. Hyperpyrexia 3. Well controlled Hypaertension 4. Trigeminal neuralgia LORRIE DAVIS MD August 25, 2024 13:02
[2024-08-25 15:15] VITALS: BP 128/76; PULSE 60; RESP 20; TEMP 36.6; O2SAT 100
--- NOTE | 2024-08-26 19:01 | DVHSR ---
APPROVED REPORT EXAM: Two-dimensional and M-mode echocardiogram with Doppler and color Doppler. Blood Pressure: 116/60 mmHg INDICATION chf CARDIOMEGALY RISK FACTORS Height: 5'4, Weight: 151 DIMENSIONS LVDd3.8 (3.8-5.7cm)LA (2D)3.9 (1.9-4.0cm)Aortic Root3.1 (2.0-3.7cm) LVDs2.9 (2.5-4.0cm)LA (MM) (1.9-4.0cm)Aortic Cusp Exc1.6 (1.5-2.0cm) EF (%) 55.0 (55-70%)Rt. Atrium3.3 (1.9-4.0cm)Asc. Aorta cm IVSd0.9 (0.7-1.1cm)RV (D) (1.8-2.4cm) PWd0.8 (0.7-1.1cm) Mitral Valve MitralMitral Stenosis E wave0.98m/sMV Mean GR.mmHg A wave0.94m/sMV Peak GR.60mmHg E/A ratio1.02D MVAcm2 DECEL [id number] 1/2 [place] Aortic Valve Aortic ValveAortic Stenosis V11.00m/Radha Mean GR.5mmHg V21.34m/Radha Peak GR.7mmHg LVOT Diameter1.7 (1.8-2.4cm)Doppler AVA1.69cm2 Pulmonic Valve V21.15m/s Tricuspid Valve TR Velocity2.48m/s [id number] Other Information Quality : Technically LimitedRhythm : Technically limited study due to patient position. Conclusion Technically good study. Sinus rhythm. Normal chamber sizes. Valves are normal. Left ventricular systolic performance is preserved at 55-60% with normal right ventricular function. Mild tricuspid regurgitation. No pericardial effusion masses or vegetations discernible.
== END 2024-08-25 16:50 | disposition home or self-care (01) | DRG 179 ==
LOC: TELE-WESTW 19:42
PROVIDERS: ADMIT Specialist; ATTEND Specialist
DX: J15.69 Pneumonia due to other Gram-negative bacteria (principal); E86.1 Hypovolemia; J15.9 Unspecified bacterial pneumonia; G50.0 Trigeminal neuralgia; J45.909 Unspecified asthma, uncomplicated; I10 Essential (primary) hypertension; R50.9 Fever, unspecified; E11.9 Type 2 diabetes mellitus without complications; Z88.6 Allergy status to analgesic agent; Z79.84 Long term (current) use of oral hypoglycemic drugs; Z87.440 Personal history of urinary (tract) infections
CPT/HCPCS: 36415; 71045; 71046; 80053; 80061; 81001; 82607; 82746; 82962; 83036; 83605; 83735; 84100; 84443; 85025; 86803; 87040; 87070; 87086; 87205; 87340; 93005; 93306; G0378; J1885; J2470